=== PATIENT | female | born 1950 | race Caucasian/White ===

== ENCOUNTER → 2017-04-27 | Outpatient (CLI) | payer MEDICARE, BC ==
[~2017-04-27] MED LIST: ALPRAZOLAM; AMLODIPINE10 MG PO; BENAZEPRIL20 MG PO; BENAZEPRIL40 MG PO; HCTZ 25MG25 MG PO; MULTIPLE VITAMI1 CAP PO; PAIN MED; VENLAFAXINE75 MG PO
[2017-04-27 12:00] LABS: LIPASE 77 U/L (23-300)
[2017-04-27 12:01] LABS: AMYLASE < 30 U/L (30-110)
== END ==
LOC: ZCOL.LAB 11:41
PROVIDERS: Family Medicine
DX: R10.13 Epigastric pain (principal)

== ENCOUNTER 2017-04-30 10:29 | Emergency (ER) | payer MEDICARE ==
[~2017-04-30] VITALS: Ht 162.6 cm; Wt 61.4 kg
[2017-04-30 11:41] LABS: HEMATOCRIT 45.4 % (37.0-47.0); HEMOGLOBIN 15.1 g/dl (12.5-16.0); INR 1.3 (0.8-3.0); MEAN CELL VOLUME 87 fl (80.0-100.0); MEAN CORPUSCULAR HEMOGLOBIN 29 pg (27.0-31.0); MEAN CORPUSCULAR HGB CONC 33 g/dl (33.0-37.0); MEAN PLATELET VOLUME 10.8 fl (7.4-10.4); PLATELET COUNT 306 K/mm3 (130-400); RED BLOOD COUNT 5.24 M/mm3 (4.10-5.30); REDCELL DISTRIBUTION WIDTH-CV 14.6 % (11.5-14.5)
[2017-04-30 11:44] LABS: ADJUSTED CALCIUM 9.5 mg/dL (8.4-10.2); ALBUMIN 3.3 gm/dL (3.5-5.0); BILIRUBIN,TOTAL 1.7 mg/dL (0.0-1.0); CALCIUM 8.9 mg/dL (8.4-10.2); CREATININE, serum 0.59 mg/dL (0.52-1.25); PARTIAL THROMBOPLASTIN TIME 30.6 SECONDS (26.0-37.0); POTASSIUM 3.4 mmol/L (3.4-5.0); TOTAL PROTEIN 7.5 gm/dL (6.4-8.2); WHITE BLOOD COUNT 22.7 K/mm3 (4.8-10.8)
[2017-04-30 12:33] LABS: C-REACTIVE PROTEIN 24.1 mg/dL (0.0-0.9)
[2017-04-30 12:51] VITALS: TEMP 99.3
[2017-04-30 14:02] LABS: ADD PATHOLOGY DIFF REVIEW NO
[2017-04-30 14:10] LABS: BAND 18 % (0-10); NEUTROPHILS 66 % (42.0-75.2); TOTAL CELLS COUNTED 100
[2017-04-30 14:11] LABS: TOXIC GRANULATION PRESENT
[2017-04-30 14:13] LABS: PLATELET ESTIMATE NORMAL (NORMAL)
[2017-04-30 14:33] VITALS: BP 158/62; PULSE 102
== END 2017-04-30 14:37 | disposition short-term general hospital (02) ==
LOC: COL.ER 10:29
PROVIDERS: Emergency Medicine
DX: A41.9 Sepsis, unspecified organism (principal); R10.12 Left upper quadrant pain; I10 Essential (primary) hypertension; E78.5 Hyperlipidemia, unspecified; F17.200 Nicotine dependence, unspecified, uncomplicated; Z86.19 Personal history of other infectious and parasitic diseases; Z85.41 Personal history of malignant neoplasm of cervix uteri; Z87.19 Personal history of other diseases of the digestive system; Z90.710 Acquired absence of both cervix and uterus
CPT/HCPCS: J1956; J2543; J3010; J7030; J7050; Q9967